=== PATIENT | female | born 1970 | race Caucasian/White ===

== ENCOUNTER 2024-03-15 21:09 | Emergency (ER) | payer OTHER, SELFPAY ==
[2024-03-15 21:13] VITALS: BP 124/74
[2024-03-15 21:32] LABS: % Eosinophils 3.2 % (0-6); % Immature Granulocytes 0.3 % (0-0.5); % Lymphocytes 34.4 % (20.5-51.1); % Monocytes 6.6 % (1.7-9.3); % Neutrophils 54.5 % (42.2-75.2); Absolute Basophils 0.1 10^3/uL (0-0.2); Absolute Eosinophils 0.2 10^3/uL (0-0.7); Absolute Lymphocytes 2.1 10^3/uL (1.2-3.4); Absolute Monocytes 0.4 10^3/uL (0.1-0.6); Absolute Neutrophils 3.4 10^3/uL (1.4-6.5); Hemoglobin 10.8 g/dL (12.0-16.0); Mean Corp Hgb Conc. 33.8 g/dL (33.0-37.0); Mean Corpuscular Volume 85.8 fL (81.0-99.0); Mean Platelet Volume 9.6 fL (7.4-10.4); Nucleated Red Blood Cells % 0 %; Platelet Count 350 10^3/uL (130-400); Red Blood Cell Count 3.73 10^6/uL (4.20-5.40); Red Cell Dist. Width 13.4 % (11.5-14.5); White Blood Cell Count 6.2 10^3/uL (4.8-10.8)
[2024-03-15 21:40] LABS: ALT (SGPT) 24 U/L (0-35); AST (SGOT) 29 U/L (14-36); Albumin 4.6 g/dl (3.5-5.0); Alkaline Phosphatase 26 U/L (38-126); Blood Urea Nitrogen 15 mg/dl (7-17); Calcium 9.3 mg/dl (8.4-10.2); Carbon Dioxide 26 mmol/L (22-30); Chloride 101 mmol/L (98-107); Glucose 100 mg/dl (70-99); Potassium 3.6 mmol/L (3.5-5.1); Sodium 140 mmol/L (135-145); Total Bilirubin 0.5 mg/dl (0.2-1.3); eGFR > 60.00
[2024-03-15 21:52] LABS: Troponin I < 0.012 ng/ml
[2024-03-15 21:54] VITALS: BMI 18.3
--- NOTE | 2024-03-15 21:57 | EDRN ---
Pt has been having 'heart pain' all day. Pt thinks she has had if in the past and has 'brushed it off as a fluke.' Pt says it has been steady throughout the day, comes in 'flashes and pulses.' This occurs on L side of chest. Pt read black box
warnings on rinvoq which concerned pt with symptoms she is having. Pt has been on rinvoq for 4 months. Pt has fatigue but gets this from taking rinvoq, not new. No sob, abd pain, n/v, fever/chills, cough, urinary symptoms. No change in chest
symptoms with movement/breathing. Pt adds she has a 'slight' tightness sensation in upper L chest. No medications taken for pain.
[2024-03-15 22:03] VITALS: BP 113/74
--- NOTE | 2024-03-15 22:20 | ED.GENMED ---
History of Present Illness
General
Chief Complaint: Chest Pain
Source: patient
Exam Limitations: none
Time Seen by Provider: 03/15/24 22:01
Nursing documentation reviewed up to this point in time: agreed with
History of Present Illness
History of Present Illness:
This is a 53-year-old woman with history of mild generally well-controlled asthma, history of chronic inflammatory eczema currently maintained on topical steroids as well as Rinvoq. She presents with intermittent left-sided chest pain that began
early afternoon today. Left-sided chest pain described as a brief twinge of nonradiating pain left chest without other associated symptoms. No definitive aggravating nor relieving factors. 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
lifting etc. and admits that while she was busy she did not notice the pain as much but believes it was mild and sporadic throughout the day even while working but seemed more persistent throughout the evening and with ongoing symptoms she admits
that 'she began to freak herself out' along with worry as she is maintained on Rinvoq which has black box warning for potential increased risk of thromboembolism, cardiovascular disease.
She herself has no history of CAD nor significant family history of CAD nor family history of thromboembolism.
No other associated symptoms, no shortness of breath, no dizziness or lightheadedness, no nausea nor vomiting, no diaphoresis, no radiation of the pain, no palpitations.
No recent travel. She denies leg pain or swelling.
She does not smoke cigarettes but she admits to rare marijuana smoking.
Last menstrual period 1 week ago. Menses have been occasionally sporadic, she denies heavy menses.
She does have history of mild chronic anemia.
Past History
Past History
ED Past Medical History: Asthma, Psychiatric (Anxiety) and Other (Chronic eczematous dermatitis maintained on topical steroids and Rinvoq; anemia)
ED Past Surgical History: None
Social History
Tobacco: Non-smoker
Alcohol: None
Drug: Marijuana
Personal:
Living: with family
Employment: Employed (Hospital Security Officer)
Family History
Family History: CAD (Grandfather with history of CAD late in life. No immediate family members with history of CAD); Negative Early CAD or Sudden
Phy Exam
Physical Exam
Physical Exam:
GENERAL: A 53-year-old woman appears her stated age, thin build, bright and alert, pleasant, appears in no acute distress.
EYE: anicteric
NECK: Supple, nontender, no meningismus, no significant adenopathy.
ENT: oral mucosa is moist. No rhinorrhea
CARDIAC: Regular rate and rhythm. no murmur. No chest wall tenderness.
LUNGS: Clear breath sounds bilaterally, no acute respiratory distress, no wheezes/rales/rhonchi
ABDOMEN: Soft, nondistended, without focal tenderness, no r/g, normoactive BS.
NEUROLOGICAL: Alert and oriented x3, no focal neuro deficits. Gait is marcos and steady.
SKIN: Warm and dry, normal color, skin intact. No rash.
MUSCULOSKELETAL: No C/C/E. peripheral pulses are full and equal b/l. No palpable tenderness.
PSYCH: Normal and appropriate interaction.
Scores
Heart Score for Chest Pain Patients
STEMI patient?: No
History: Slightly or Non-Suspicious
ECG: Normal
Age: >45 - <65 years
Risk Factors: No Risk Factors
Troponin: </= Normal Limit
Heart Score for Chest Pain Patients: 1
Heart Score Risk: 2.5% MACE over next 6 weeks
Course
Orders/Labs/Results
Orders:
Orders
03/15/24 21:09
Electrocardiogram (*1) Urgent
Reason for Study: Chest Pain
03/15/24 21:10
EKG- Treatment ONCE
03/15/24 21:20
Complete Blood Count/With Diff Urgent
Comprehensive Metabolic Panel Urgent
Troponin I Urgent
03/15/24 23:00
D-Dimer Urgent
Troponin I Urgent
03/16/24 00:03
CT Chest Pe Study Urgent
Reason For Exam: acute left sided CP, elevated d-dimer
Abnormal Lab Results
03/15/24 03/15/24
21:20 23:00
RBC 3.73 L 10^6/uL
(4.20-5.40)
Hgb 10.8 L g/dL
(12.0-16.0)
Hct 32.0 L %
(37.0-47.0)
D-Dimer 0.95 H ug/mlFEU
(0.00-0.50)
Glucose 100 H mg/dl
(70-99)
Alkaline Phosphatase 26 L U/L
(38-126)
03/15/24 21:20
03/15/24 21:20
Vital Signs
Initial and Last Documented VS:
Initial Vital Signs
Temp Pulse Resp BP Pulse Ox
98.1 F 87 18 124/74 100
03/15/24 21:13 03/15/24 21:13 03/15/24 21:13 03/15/24 21:13 03/15/24 21:13
Last Documented Vital Signs
Temp Pulse Resp BP Pulse Ox
98.1 F 54 14 105/78 100
03/15/24 21:13 03/16/24 01:57 03/16/24 00:00 03/16/24 01:57 03/15/24 21:13
MDM/Problems Addressed
Differential Diagnosis Includes:
Concern for ACS, GERD, musculoskeletal pain, occult pneumonia, pleurisy, pleural effusion. As patient maintained on Carlito inhibitor must also consider thromboembolism/PE.
Overall well in appearance. Chest pain is brief, intermittent and not pleuritic in nature. Chest pain described as atypical and not consistent with coronary ischemia.
Thus far labs are unremarkable save for mild anemia which patient states is chronic. Chemistries are unremarkable. Troponin is negative.
EKG is unremarkable, Within normal limits. No old EKGs to compare.
With ongoing chest pain since early afternoon, unremarkable EKG and negative troponin, ACS is unlikely.
Will check D-dimer and if elevated we will plan for CT of the chest. If negative will check chest x-ray.
MDM/Problems Addressed:
Acute chest pain
Chronic conditions affecting care:
Chronic inflammatory dermatitis, chronically maintained on Rinvoq (CARLITO inhibitor)
*Radiology
Radiology exam reviewed: radiology read reviewed (CT of the chest is unremarkable. No evidence of PE, clear lung arroyo.)
*Pulse Oximetry
Patient hypoxic: no
*EKG
Interpreted by ED Provider?: Yes
Interpretation: normal
Comparison EKG: no comparison EKG present
Rate: normal
Rhythm: sinus
Nemo: normal axis
Interval: normal interval
QRS Pattern: normal QRS
Ischemia: no ischemia
*Corrections Specialist Interpretation
Rate: normal
Interpretation: normal
Rhythm: sinus
*Critical Care Note
Total Time (30-74mins, 75-104mins- exclusive of procedures): Not Applicable
Update Note
Update Note:
03/16/2024 0216 AM
Repeat troponin remains flat/negative.
CT of the chest is unremarkable as well, no evidence of PE, clear lung arroyo.
Nonspecific intermittent left chest pain may be acid reflux versus musculoskeletal in nature.
Recommend Tylenol as needed for pain versus trial of H2 kate/PPI.
Discussed importance of prompt follow-up with PCP for recheck.
ED Attending Note
-
Portions of this chart may have been created with voice recognition software.� Occasional wrong word or��sound alike� substitutions may have occurred due to the inherent limitations of voice recognition software.
Discharge Plan
Departure
Patient Disposition: Home (Routine Discharge)
Date of Disposition: 03/16/24
Time of Disposition: 02:15
Patient with high blood pressure during this ER visit?: No
Condition: Good
Discharge Problem:
nonspecific left chest pain
Instructions: Chest Pain PCP Follow Up
Prescriptions:
No Action
gabapentin 300 mg Capsule
600 mg PO DAILY
gabapentin 300 mg Capsule
900 mg PO HS
escitalopram oxalate [Lexapro] 10 mg Tablet
10 mg PO HS
Rinvoq 15 mg Tablet Extended Release 24 Hr
15 mg PO HS
Referrals:
Anitha Tovar MD [Family Provider] - Call in 1-3 days for appt
Interventions
Interventions:
*Risk Screen - Suicide Last Done: 03/15/24 21:13
*General Assessment Last Done: 03/15/24 21:13
*Neglect/Abuse Screening Last Done: 03/15/24 21:13
*ED COVID-19 Vaccine History Last Done: 03/15/24 21:54
ED- Cardiac Assessment Last Done: 03/15/24 22:07
Discharge Date and Time
Print Language: SPANISH
[2024-03-15 22:47] VITALS: BP 118/79
[2024-03-15 23:00] VITALS: BP 113/63
[2024-03-15 23:23] LABS: D-Dimer 0.95 ug/mlFEU (0.00-0.50)
[2024-03-15 23:35] LABS: Troponin I < 0.012 ng/ml
[2024-03-16] VITALS: BP 115/71
[2024-03-16 01:57] VITALS: BP 105/78
[2024-03-16 02:00] VITALS: BP 113/75
== END 2024-03-16 02:35 | disposition home or self-care (01) ==
LOC: EMR 21:09
PROVIDERS: Emergency Medicine; EMERGENCY PHYSICIAN Emergency Medicine; FAMILY PHYSICIAN Family Medicine
DX: R07.89 Other chest pain (principal); J45.909 Unspecified asthma, uncomplicated; F41.9 Anxiety disorder, unspecified; L30.9 Dermatitis, unspecified; Z82.49 Family history of ischemic heart disease and other diseases of the circulatory system
CPT/HCPCS: 99284; 71275; 80053; 84484; 85025; 85379; 93005; Q9967